=== PATIENT | female | born 1985 | race Caucasian/White ===

== ENCOUNTER → 2016-09-03 09:50 | Observation (INO) ==
[~2016-09-03 09:50] MED LIST: Mag Hydrox/Al Hydrox/Simeth 30 ML UDC PO PRN
--- NOTE | 2016-09-03 10:07 | OB/GYN Progress Note ---
Date of Encounter: 09/03/16 Time of Encounter: 10:05 - Assessment and Plan (1) LGA (large for gestational age) fetus affecting mother, antepartum Status: Acute Evaluation per Dr Bhatia Qualifiers: Fetus number: single or unspecified fetus Trimester: third trimester Qualified Code(s): O36.63X0 - Maternal care for excessive growth, third trimester, not applicable or unspecified (2) 33 weeks gestation of Status: Acute Care per Dr Bhatia (3) Antepartum non-reassuring heart rate or rhythm affecting care of mother Status: Acute Reactive NST, repeat in [address] Bhatia (4) GDM, class A2 Status: Acute BS good today, on glyburide Subjective - Subjective Principal diagnosis: 33 week LGA h/o nonreassuring monitoring Interval history: Pt of Dr Bhatia to L+D for 2 hour NST scheduled per Dr Bhatia Antepartum ROS: movement normal, no new complaints, no loss of fluid, no vaginal bleeding Objective - Exam FHR: category 1 - Labs Labs: Abnormal lab results POC Glucose 101 (58-89) H 09/03/16 08:06
== END | disposition home or self-care (01) ==
LOC: 1NENULAB
PROVIDERS: ADMIT Student in an Organized Health Care Education/Training Program; ATTEND Student in an Organized Health Care Education/Training Program

== ENCOUNTER 2016-09-04 16:35 | Inpatient (IN) ==
[2016-09-04 13:02] LABS: Basophils % 0.2 %; Hemoglobin 12.9 g/dL (11.5-15.4); Immature Granulocytes % 1.3 % (0-4); Immature Platelets 6.6 % (1.1-6.1); Lymphocytes # 1.7 K/mcL (0.6-4.6); Lymphocytes % 20.2 %; Mean Corpuscular HGB Conc 32.3 g/dL (31.6-35.5); Mean Corpuscular Hemoglobin 29.5 pg (28.0-33.3); Mean Corpuscular Volume 91.3 fL (83.0-100.0); Monocytes # 0.7 K/mcL (0.0-1.3); Monocytes % 7.8 %; Platelet Count 343 K/mcL (140-400); Red Blood Count 4.38 M/mcL (3.82-4.97); Red Cell Distribution Width 14.7 % (11.5-14.5); Segmented Neutrophils % 70.5 %
[~2016-09-04 16:35] MED LIST changes: +Betamethasone Acet/SodPhos 6 MG/ML MDV IM SCH; +Lidocaine -MPF 2% 5 ML VIAL ONE; -Mag Hydrox/Al Hydrox/Simeth 30 ML UDC PO PRN; +Ringers Solution, Lactated 500 ML IVC ONE
[2016-09-04] MEDS ORDERED: *HR* FentaNYL (PF) 100 MCG/2 ML VIAL ONE (16:47)
[2016-09-04] MEDS ORDERED: *HR* Phenylephrine 10 MG/ML VIAL ONE (16:47)
[2016-09-04] MEDS ORDERED: *HR* Morphine Sulfate/PF 5 MG/10 ML AMPUL ONE (16:47)
[2016-09-04] MEDS ORDERED: *HR* Oxytocin 10 UNIT/ML VIAL IM ONE ×2 (16:47→17:16)
[2016-09-04] MEDS ORDERED: Famotidine 20 MG/2 ML VIAL IVP PRN (16:57)
[2016-09-04] MEDS ORDERED: Naloxone 0.4 MG/ML INJ IVP PRN (16:57)
[2016-09-04 17:13] LABS: Alanine Aminotransferase 17 Units/L (0-55); Albumin 2.8 g/dL (3.5-5.0); Albumin/Globulin Ratio 0.5 (1.1-2.2); Alkaline Phosphatase 135 Units/L (38-126); Aspartate Amino Transferase 18 Units/L (5-34); BUN/Creatinine Ratio 12 (6-26); Bilirubin,Total 0.5 mg/dL (0.2-1.2); Blood Urea Nitrogen 11 mg/dL (7-20); Calcium 9.8 mg/dL (8.6-10.8); Chloride 105 mEq/L (98-109); Globulin 5.2 g/dL (2.4-3.5); Glucose 98 mg/dL (70-99); Osmolality,Calculated 271 (280-300); Sodium 131 mEq/L (136-145); eGFR For African Americans > 60 (> 60); eGFR For Non-African Americans > 60 (> 60)
[2016-09-04] MEDS ORDERED: Ringers Solution, Lactated 1,000 ML ONE (17:15)
[2016-09-04 17:16] LABS: Carbon Dioxide 8 mEq/L (19-29)
[2016-09-04] MEDS ORDERED: Ondansetron 4 MG/2 ML VIAL ONE (17:18)
[2016-09-04] MEDS ORDERED: *HR* Promethazine 25 MG/ML VIAL IVP PRN (17:45)
[2016-09-04] MEDS ORDERED: *HR* HYDROmorphone (PF) 1 MG/ML SYRINGE IVP PRN (17:45)
--- NOTE | 2016-09-04 17:49 | Anesthesia Evaluation PreOp ---
Date of Encounter: 09/04/16 Time of Encounter: 16:44 - Past History Planned Operation: , unstable FHR Cardiac History: Denies any Significant Hx, Other (tachycardia, SOB, ECHO ordered per DR. Bhatia, MET can walk slowly 1 mile with SOB) Pulmonary History: Other (very SOB,) PEANUT SHAKER History: Other (Sciatic left hip with radiculopathy occ not position dependent.) Other Medical History: Diabetes Type II, Other (RA in shoulders, hips, knee's according to patient) Anesthesia History: No Prior Anesthetic Complications, Past Anesthesia : Yes (34 wks in labor, late decerations) Alcohol Use: none Drug use: none Medications and Allergies Mag Hydrox/Al Hydrox/Simeth [Maalox] 30 ml PO BID 09/04/16 [History] Vit/Iron Fumarate/FA [ Tablet] 1 each PO DAILY 09/04/16 [ History] glyBURIDE [GlyBURIDE] 7.5 mg PO DAILY 09/04/16 [History] glyBURIDE [GlyBURIDE] 10 mg PO 0800 09/04/16 [History] Allergies latex Adverse Reaction (Verified 09/01/16 10:04) Blister Anesthesia Results - Labs 09/04/16 12:50 09/04/16 12:50 Anesthesia Exam - HEENT Pupil (Motor): Pupils equal Mallampati: III Teeth: Normal Oral Opening: Greater than 3 (good neck and jaw ROM) - PEANUT SHAKER LOC: Oriented PEANUT SHAKER Motor: Normal RUE, Normal LUE, Normal RLE, Normal LLE, Normal Face PEANUT SHAKER Sensory: Normal: RUE, LUE, RLE, LLE, Face - Cardiac Rhythm: Regular Murmur: None - Pulmonary Breath Sounds: bilateral Clear Respiratory Effort: Symmetrical Anesthesia Assess/Plan ASA Score: 2, E (unable to wait for NPO status or echo read to continue for operative del, plan for regional) Modified Ramer Scale for Level of Consciousness: Cooperative, oriented, and tranquil Anesthetic Plan: General, Regional Monitoring Plan: Standard Monitors Recovery Plan: PACU
[2016-09-04] MEDS ORDERED: Oxytocin 20 units/ LR 1000 mL 20 UNIT/1,000 ML BAG IVC ONE (18:28)
--- NOTE | 2016-09-04 18:51 | OB/GYN History & Physical ---
Date of Encounter: 09/05/16 Time of Encounter: 18:41 Assessment and Plan (1) Antepartum non-reassuring heart rate or rhythm affecting care of mother Current visit: No Status: Deleted After the patient was on prolonged monitoring, she began to have recurrent late decels so I made the decision to proceed to a primary section, she is s/p BMZ @ 1236hrs I've discussed with the patient and answered her questions, Anesthesia informed History of Present Illness HPI: Ms. Patel is a 31 year old female @ 33+1 weeks with GDMA 2 on Glyburide who presented to L and D for prolonged monitoring after a BPP of 6/8(2 for breathing). On L and D, fingersticks have been normal, no LOF, VB or ctxs. She reports some difficulty breathing when she lays down. She reports that she has been watching what she eats because she was afraid of her sugars and reports only eating a hard boiled egg for breakfast. On L and D, tracing was noted to be tachycardic with mod chase, occasional variable and occ late decels. She was given steroids for lung maturation. She was kept longer on the monitor and continued to complain of shortness of breath. She became tachycardic and tachypnic, BP normal, O2 sats 100%. She was sent for an ECHO which returned normal. Shortly after she returned, the tracing was found to have recurrent late decels. Labs were drawn before proceeding to C/Section. Past Med Surg Social Fam HX - Past Medical History Medical history: non-contributory, migraine Psychiatric history: depression - Past Surgical History Surgical History: cholecystectomy - Social History Smoking Status: Never smoker Smokeless Tobacco Status: No Alcohol use: none Drug use: none - Family History Mother Living Status: Still Living Hx Family Cardiac Disorders: No Hx Family Respiratory Disorders: No Hx Family Cancer: No Hx Family GI Disorders: No Hx Family Endocrine Disorder: No Hx Family Neuromuscular Disorders: No Hx Family Neurologic Disorders: No Hx Family HEENT Disorders: No Hx Family Autoimmune Disorders: No Obstetrical History - Pregnancies : 5 Medications and Allergies Mag Hydrox/Al Hydrox/Simeth [Maalox] 30 ml PO BID 09/04/16 [History] Vit/Iron Fumarate/FA [ Tablet] 1 each PO DAILY 09/04/16 [ History] glyBURIDE [GlyBURIDE] 7.5 mg PO DAILY 09/04/16 [History] glyBURIDE [GlyBURIDE] 10 mg PO 0800 09/04/16 [History] Allergies latex Adverse Reaction (Verified 09/01/16 10:04) Blister Review of System OB All systems PM: reviewed and no additional remarkable complaints except as stated Exam - Constitutional Constitutional: well nourished - HEENT HEENT: PERRL - Neck Neck exam: full ROM - Lungs Respiratory exam: CTAB - Cardiovascular Cardiovascular exam: RRR, tachycardia - Abdomen Abdomen: Present: gravid Results Result Diagrams: 09/05/16 01:11 09/05/16 06:00 Abnormal lab results RDW 14.7 % (11.5-14.5) H 09/04/16 12:50 Immature Plt Fraction 6.6 % (1.1-6.1) H 09/04/16 12:50 Sodium 131 mEq/L (136-145) L 09/04/16 12:50 Potassium 5.0 mEq/L (3.5-4.5) H 09/04/16 12:50 Carbon Dioxide 8 mEq/L (19-29) L* 09/04/16 12:50 POC Glucose 120 (58-89) H 09/04/16 14:48 Calculated Osmolality 271 (280-300) L 09/04/16 12:50 Alkaline Phosphatase 135 Units/L (38-126) H 09/04/16 12:50 Albumin 2.8 g/dL (3.5-5.0) L 09/04/16 12:50 Globulin 5.2 g/dL (2.4-3.5) H 09/04/16 12:50 Albumin/Globulin Ratio 0.5 (1.1-2.2) L 09/04/16 12:50 All other labs normal. - VTE Reasons for not Prescribing Prophylaxis: Treatment not Indicated - Low risk for VTE
[2016-09-04] MEDS ORDERED: 0.9 % Sodium Chloride 1,000 ML IVC ONE (19:13)
[2016-09-04 19:37] LABS: ABG Base Excess -19.7 mEq/L (-2.0 to 3.0); ABG HCO3 5.7 mEQ/L (21-27); ABG Oxygen Saturation 98 % (95-98); ABG PH 7.22 pH Units (7.32-7.45); ABG PO2 121 mmHg (85-104); ABG TCO2 6.1 mEq/L (20-26); Blood Gas FiO2 21 %
[2016-09-04 19:38] LABS: ABG PCO2 14 mmHg (35-45)
--- NOTE | 2016-09-04 20:22 | OB/GYN Procedure Note ---
Section - Date of procedure: 09/04/16 Preop diagnosis: category 2 FHT tracing Post-op diagnosis: same Procedure: section, primary low transverse Surgeon: Nixon Bhatia Estimated blood loss (cc): 200 Anesthesia Type: Spinal section complications: none Disposition: L&D Recovery Room Specimens: Placenta, Cord gasses - (s) A Delivery Date: 09/04/16 Infant Delivery Time: 17:57 Presentation: vertex Gender: Male Viability: Viable Gram Weight: 2.27 kg at 1 minute: 1 at 5 minutes: 3 at 10 minutes: 5 Shoulder Dystocia: not encountered Placenta: complete extraction Cord: 3 umbilical vessels - Narrative Narrative: Patient was brought to the operating room and was given satisfactory spinal anesthesia. The abdomen was prepped and draped in a sterile fashion. A Pfannenstiel incision was made and carried sharply down to the level of fascia. The fascia was incised transversely. The fascia was dissected away from the underlying rectus muscles. With sharp and blunt dissection, rectus muscles were divided in midline. The perineum was entered bluntly. The incision was carried vertically with scissors. Transverse incision was made across the bladder peritoneum. The bladder was dissected away from the underlying lower uterine segment. Bladder retractor was placed to protect the bladder. The lower uterine segment was entered sharply with a scalpel. Incision was manually extended. The 's head was pulled up and delivered easily as were the shoulders and body. The mouth and oropharynx were suctioned. The cord was clamped and cut. The infant was passed off to the waiting case operator. Placenta was extracted completely and found to be intact. Uterus was explored and found to be empty. Uterus was delivered through the abdominal incision and massaged vigorously. Intravenous Pitocin was administered. The margins of the uterine incision, which was closed primarily with a running locking stitch of 0 Vicryl with adequate hemostasis. Secondary running locking stitch was placed for extra strength to the wound. The uterus was returned to its proper anatomic position in the abdomen. The fascia was closed with a simple running stitch of 0 vicryl. The skin was closed with running subcuticular of 4-0 vicryl. Uterus was expressed of its contents. Patient was brought to the recovery room in satisfactory condition. There were no complications. All sponge, needle, and instrument counts were reported to be correct.
--- NOTE | 2016-09-04 20:27 | OB/GYN Progress Note ---
Date of Encounter: 09/04/16 Time of Encounter: 20:22 - Assessment and Plan (1) Status post section Current Visit: Yes Status: Acute After review of the patient's labs, I've ordered a repeat every 2 hrs for now, 0.9% saline 1L over 1 hr given, HCO3 given, will keep here on L and D until stable ABG values reviewed- patient has compensated metabolic acidosis, Subjective - Subjective Interval history: patient doing much better, reports improved breathing, HR now normal Objective - Vital Signs Latest vital signs: Intake and Output 09/04/16 09/04/16 09/04/16 07:59 15:59 23:59 Other: Weight 76.3 kg Patient Weight 09/04/16 23:59 Weight 76.3 kg - Labs Labs: Laboratory Results - last 24 hr 09/04/16 09/04/16 09/04/16 10:21 12:50 12:50 WBC 8.5 RBC 4.38 Hgb 12.9 Hct 40.0 MCV 91.3 MCH 29.5 MCHC 32.3 RDW 14.7 H Plt Count 343 MPV 11.0 Immature Gran % 1.3 Seg Neutrophils % 70.5 Lymphocytes % 20.2 Monocytes % 7.8 Eosinophils % 0.0 Basophils % 0.2 Neutrophils # 6.0 Lymphocytes # 1.7 Monocytes # 0.7 Eosinophils # 0.0 Basophils # 0.0 Immature Plt Fraction 6.6 H ABG pH ABG pCO2 ABG pO2 ABG HCO3 ABG Total CO2 ABG O2 Saturation ABG Base Excess Blood Gas Modality Inspired O2 Sodium 131 L Potassium 5.0 H Chloride 105 Carbon Dioxide 8 L* BUN 11 Creatinine 0.92 Est GFR ( Amer) > 60 Est GFR (Non-Af Amer) > 60 BUN/Creatinine Ratio 12 Glucose 98 POC Glucose 115 H Calculated Osmolality 271 L Calcium 9.8 Total Bilirubin 0.5 AST 18 ALT 17 Alkaline Phosphatase 135 H Serum Total Protein 8.0 Albumin 2.8 L Globulin 5.2 H Albumin/Globulin Ratio 0.5 L 09/04/16 09/04/16 14:48 19:25 WBC RBC Hgb Hct MCV MCH MCHC RDW Plt Count MPV Immature Gran % Seg Neutrophils % Lymphocytes % Monocytes % Eosinophils % Basophils % Neutrophils # Lymphocytes # Monocytes # Eosinophils # Basophils # Immature Plt Fraction ABG pH 7.22 L ABG pCO2 14 L* ABG pO2 121 H ABG HCO3 5.7 L ABG Total CO2 6.1 L ABG O2 Saturation 98 ABG Base Excess -19.7 L Blood Gas Modality RA Inspired O2 21 Sodium Potassium Chloride Carbon Dioxide BUN Creatinine Est GFR ( Amer) Est GFR (Non-Af Amer) BUN/Creatinine Ratio Glucose POC Glucose 120 H Calculated Osmolality Calcium Total Bilirubin AST ALT Alkaline Phosphatase Serum Total Protein Albumin Globulin Albumin/Globulin Ratio
[2016-09-04 20:56] LABS: Bilirubin,Urine Negative (Negative); Blood,Urine Small (Negative); Clarity,Urine Clear (Clear); Color,Urine Yellow (Yellow); Glucose,Urine (UA) Normal (Normal); Ketones,Urine >=160 mg/dL (Negative); Leukocyte Esterase,Urine Negative (Negative); Nitrite,Urine Negative (Negative); PH,Urine 5.5 pH Units (5.0-8.0); Protein,Urine 30 mg/dL (Neg-Trace); Specific Gravity,Urine 1.015 (1.010-1.025); Urobilinogen,Urine Normal (Normal)
[2016-09-04 20:58] LABS: Bacteria,Urine None Seen per hpf (None-Few); Hyaline Casts,Urine None Seen per lpf (None-Few); RBC,Urine 0-3 per hpf (0-3); Squamous Epithelial Cell,Urine Moderate per lpf (None-Few); WBC,Urine 0-3 per hpf (0-3)
[2016-09-04 22:01] LABS: Alanine Aminotransferase 14 Units/L (0-55); Albumin/Globulin Ratio 0.5 (1.1-2.2); Alkaline Phosphatase 111 Units/L (38-126); Aspartate Amino Transferase 17 Units/L (5-34); BUN/Creatinine Ratio 11 (6-26); Bilirubin,Total 0.3 mg/dL (0.2-1.2); Blood Urea Nitrogen 9 mg/dL (7-20); Calcium 8.9 mg/dL (8.6-10.8); Chloride 111 mEq/L (98-109); Globulin 4.2 g/dL (2.4-3.5); Glucose 160 mg/dL (70-99); Osmolality,Calculated 282 (280-300); Sodium 135 mEq/L (136-145); Total Protein 6.4 g/dL (6.0-8.3); eGFR For African Americans > 60 (> 60); eGFR For Non-African Americans > 60 (> 60)
[2016-09-04 22:03] LABS: Albumin 2.2 g/dL (3.5-5.0)
[2016-09-04 22:05] LABS: Carbon Dioxide 5 mEq/L (19-29)
[2016-09-04] MEDS ORDERED: Ondansetron 4 MG/2 ML VIAL IVP PRN (22:33)
[2016-09-04] MEDS ORDERED: Metoclopramide 10 MG/2 ML VIAL IVP PRN (22:33)
[2016-09-04] MEDS ORDERED: Ibuprofen 600 MG TABLET PO PRN (22:33)
[2016-09-04] MEDS ORDERED: Sennosides 8.6 MG TABLET PO PRN (22:33)
[2016-09-04] MEDS ORDERED: Simethicone 80 MG TAB.CHEW PO PRN (22:33)
[2016-09-04] MEDS ORDERED: *HR* OxyCODONE/APAP 5/325 TABLET PO PRN (22:33)
[2016-09-04] MEDS ORDERED: Oxytocin 20 units/ LR 1000 mL 20 UNIT/1,000 ML BAG IVC SCH (22:45)
--- NOTE | 2016-09-04 23:23 | Anesthesia Evaluation Post Op ---
Date of Encounter: 09/04/16 Time of Encounter: 23:19 - Vital Signs Vital Signs: vss, continue to follow hospitalist consulted for uncomp metabolic acidosis (neg ) lactic acidosis. spilling ketones in urine. - Lungs Lungs: Clear Ascult./Percussion - Airway Airway: Non-obstructed - Cardiovascular Regular Rate - Mental Status Mental Status: Alert & Oriented, Answers Appropriately - Pain Pain Scale used: Flowers-Nugent (Faces) (tolerable) - Nausea Vomiting Nausea Vomiting: Not Present - Hydration Hydration: Ice chips - Discharge PostOp Status: Transfer Patient to floor
[2016-09-04] MEDS ORDERED: BREAST MILK 1 BOTTLE PO PRN (23:49)
[2016-09-05] MEDS ORDERED: *HR* HYDROmorphone (PF) 1 MG/ML SYRINGE IVP PRN ×2 (00:08→01:06)
[2016-09-05] MEDS ORDERED: *HR* Morphine 2 MG/ML SYRINGE IVP PRN ×2 (00:08→01:06)
--- NOTE | 2016-09-05 00:27 | OB/GYN Progress Note ---
Date of Encounter: 09/05/16 Time of Encounter: 00:25 - Assessment and Plan (1) Status post section Current Visit: Yes Status: Acute After reviewing the repeat labs, I feel it is best to have this patient transferred to a higher level of care to manage her electrolyte abnormalities, I have spoken t the Hospitalist who agrees with the transfer, OB will keep rounding, Subjective - Subjective Interval history: Patient ontinues to report improvement in her symptoms Objective - Vital Signs Latest vital signs: Intake and Output 09/04/16 09/04/16 09/05/16 15:59 23:59 07:59 Intake Total 1000 / 1000 Balance 1000 / 1000 Intake: IV Fluids 1000 / 1000 0.9 % Sodium Chloride 1, 1000 / 1000 000 ML @ 3750 mls/hr IVC .Q16M ONE Rx#:[id number] Other: Weight 76.3 kg - Labs Labs: Laboratory Results - last 24 hr 09/04/16 09/04/16 09/04/16 10:21 12:50 12:50 WBC 8.5 RBC 4.38 Hgb 12.9 Hct 40.0 MCV 91.3 MCH 29.5 MCHC 32.3 RDW 14.7 H Plt Count 343 MPV 11.0 Immature Gran % 1.3 Seg Neutrophils % 70.5 Lymphocytes % 20.2 Monocytes % 7.8 Eosinophils % 0.0 Basophils % 0.2 Neutrophils # 6.0 Lymphocytes # 1.7 Monocytes # 0.7 Eosinophils # 0.0 Basophils # 0.0 Immature Plt Fraction 6.6 H ABG pH ABG pCO2 ABG pO2 ABG HCO3 ABG Total CO2 ABG O2 Saturation ABG Base Excess Blood Gas Modality Inspired O2 Sodium 131 L Potassium 5.0 H Chloride 105 Carbon Dioxide 8 L* BUN 11 Creatinine 0.92 Est GFR ( Amer) > 60 Est GFR (Non-Af Amer) > 60 BUN/Creatinine Ratio 12 Glucose 98 POC Glucose 115 H Calculated Osmolality 271 L Lactic Acid Calcium 9.8 Total Bilirubin 0.5 AST 18 ALT 17 Alkaline Phosphatase 135 H Serum Total Protein 8.0 Albumin 2.8 L Globulin 5.2 H Albumin/Globulin Ratio 0.5 L Beta-Hydroxybutyric Acd Urine Color Urine Clarity Urine pH Ur Specific [place] Urine Protein Urine Glucose (UA) Urine Ketones Urine Blood Urine Nitrite Urine Bilirubin Urine Urobilinogen Ur Leukocyte Esterase Urine Microscopic RBC Urine Microscopic WBC Ur Squamous Epith Cells Urine Bacteria Hyaline Casts 09/04/16 09/04/16 09/04/16 14:48 19:25 20:42 WBC RBC Hgb Hct MCV MCH MCHC RDW Plt Count MPV Immature Gran % Seg Neutrophils % Lymphocytes % Monocytes % Eosinophils % Basophils % Neutrophils # Lymphocytes # Monocytes # Eosinophils # Basophils # Immature Plt Fraction ABG pH 7.22 L ABG pCO2 14 L* ABG pO2 121 H ABG HCO3 5.7 L ABG Total CO2 6.1 L ABG O2 Saturation 98 ABG Base Excess -19.7 L Blood Gas Modality RA Inspired O2 21 Sodium Potassium Chloride Carbon Dioxide BUN Creatinine Est GFR ( Amer) Est GFR (Non-Af Amer) BUN/Creatinine Ratio Glucose POC Glucose 120 H Calculated Osmolality Lactic Acid Calcium Total Bilirubin AST ALT Alkaline Phosphatase Serum Total Protein Albumin Globulin Albumin/Globulin Ratio Beta-Hydroxybutyric Acd Urine Color Yellow Urine Clarity Clear Urine pH 5.5 Ur Specific [place] 1.015 Urine Protein 30 H Urine Glucose (UA) Normal Urine Ketones >=160 H Urine Blood Small H Urine Nitrite Negative Urine Bilirubin Negative Urine Urobilinogen Normal Ur Leukocyte Esterase Negative Urine Microscopic RBC 0-3 Urine Microscopic WBC 0-3 Ur Squamous Epith Cells Moderate H Urine Bacteria None Seen Hyaline Casts None Seen 09/04/16 09/04/16 09/04/16 21:40 21:40 21:40 WBC RBC Hgb Hct MCV MCH MCHC RDW Plt Count MPV Immature Gran % Seg Neutrophils % Lymphocytes % Monocytes % Eosinophils % Basophils % Neutrophils # Lymphocytes # Monocytes # Eosinophils # Basophils # Immature Plt Fraction ABG pH ABG pCO2 ABG pO2 ABG HCO3 ABG Total CO2 ABG O2 Saturation ABG Base Excess Blood Gas Modality Inspired O2 Sodium 135 L Potassium 4.0 D Chloride 111 H Carbon Dioxide 5 L* BUN 9 Creatinine 0.82 Est GFR ( Amer) > 60 Est GFR (Non-Af Amer) > 60 BUN/Creatinine Ratio 11 Glucose 160 H POC Glucose Calculated Osmolality 282 Lactic Acid 0.6 Calcium 8.9 Total Bilirubin 0.3 AST 17 ALT 14 Alkaline Phosphatase 111 Serum Total Protein 6.4 Albumin 2.2 L D Globulin 4.2 H Albumin/Globulin Ratio 0.5 L Beta-Hydroxybutyric Acd > 2.00 H Urine Color Urine Clarity Urine pH Ur Specific [place] Urine Protein Urine Glucose (UA) Urine Ketones Urine Blood Urine Nitrite Urine Bilirubin Urine Urobilinogen Ur Leukocyte Esterase Urine Microscopic RBC Urine Microscopic WBC Ur Squamous Epith Cells Urine Bacteria Hyaline Casts
[2016-09-05] MEDS ORDERED: Sennosides 8.6 MG TABLET PO PRN (01:06)
[2016-09-05] MEDS ORDERED: Simethicone 80 MG TAB.CHEW PO PRN (01:06)
[2016-09-05] MEDS ORDERED: Naloxone 0.4 MG/ML INJ IVP PRN (01:06)
[2016-09-05] MEDS ORDERED: Ibuprofen 600 MG TABLET PO PRN (01:06)
[2016-09-05] MEDS ORDERED: *HR* Dextrose 50 % in Water (Syg) 50 ML SYRINGE IVP PRN ×2 (01:20→15:34)
[2016-09-05] MEDS ORDERED: D5% in 0.45% NACL 1,000 ML IVC PRN (01:20)
[2016-09-05] MEDS ORDERED: Insulin Human Regular 100 UNIT in 0.9 % Sodium Chloride 100 ML IVC SCH (01:30)
[2016-09-05 02:04] LABS: Basophils % 0.2 %; Hemoglobin 10.8 g/dL (11.5-15.4); Immature Granulocytes % 1.3 % (0-4); Lymphocytes # 0.9 K/mcL (0.6-4.6); Lymphocytes % 7.9 %; Mean Corpuscular HGB Conc 32.7 g/dL (31.6-35.5); Mean Corpuscular Hemoglobin 29.3 pg (28.0-33.3); Mean Corpuscular Volume 89.7 fL (83.0-100.0); Mean Platelet Volume 11.1 fL (9.4-12.4); Monocytes % 8.5 %; Neutrophils # 9.3 K/mcL (1.6-8.9); Platelet Count 266 K/mcL (140-400); Red Blood Count 3.68 M/mcL (3.82-4.97); Red Cell Distribution Width 14.6 % (11.5-14.5); Segmented Neutrophils % 82.1 %
[2016-09-05 02:07] LABS: VBG HCO3 10.3 mEq/L (21-27); VBG PH 7.26 pH Units (7.32-7.42)
[2016-09-05 02:18] LABS: BUN/Creatinine Ratio 11 (6-26); Blood Urea Nitrogen 9 mg/dL (7-20); Calcium 8.9 mg/dL (8.6-10.8); Chloride 111 mEq/L (98-109); Glucose 195 mg/dL (70-99); Osmolality,Calculated 280 (280-300); Sodium 133 mEq/L (136-145); eGFR For African Americans > 60 (> 60); eGFR For Non-African Americans > 60 (> 60)
[2016-09-05 02:22] LABS: Carbon Dioxide 9 mEq/L (19-29)
--- NOTE | 2016-09-05 02:56 | Internal Medicine Consult Note ---
<Avtar Mcmanus - Last Filed: 09/05/16 02:53> Date of Encounter: 09/05/16 Time of Encounter: 01:50 - Assessment and Plan (1) Diabetic ketoacidosis Current Visit: Yes Status: Acute Assessment and plan: The patient transferred from labor and delivery for diabetic ketoacidosis. Patient was diagnosed with gestational diabetes on glipizide at home. Poor oral intake over the last couple days. - Sodium 135, chloride 111, carbon dioxide 5, anion gap of 19, beta hydroxybutyric acid greater than 2, glucose 160. She received 1 L bolus normal saline in labor and delivery. Goal: close anion gap Plan: - D5 in 0.45 saline + potassium @200ml/hr - 0.1 units/kg/hr insulin - Q1hr glucose checks - VBG once - BMP Q4hrs - DKA protocol - continuous cardiac monitoring Qualifiers: Diabetes mellitus type: type 2 Qualified Code(s): E13.10 - Other specified diabetes mellitus with ketoacidosis without coma (2) Status post section Current Visit: Yes Status: Acute Assessment and plan: Patient is status post section this evening. - Obstetrics to continue postdelivery care. (3) GDM, class A2 Current Visit: Yes Status: Acute Assessment and plan: Patient diagnosed with gestational diabetes. Home medications include glyburide daily. Plan: - Post DKA correction patient will require before meals at bedtime glucose checks - low dose inpatient sliding scale. (4) DVT prophylaxis Current Visit: Yes Status: Acute Assessment and plan: SCDs Internal Medicine - CN: HPI - Data of Consult Patient: new to practice Consult date: 09/05/16 Requesting Physician: Nixon Bhatia MD - Consult Narrative Reason for consult: DKA History of present illness: Ms. Patel is a 31 year old female who is transferred from labor and delivery this state of diabetic ketoacidosis. Patient states that she was prediabetic first told in 2016 but was not on any medications at home. She has never taken insulin and was given glipizide after she was diagnosed with gestational diabetes around 28 weeks of . She says that everything had been going well until recently when she went and was found to have a fast heart rate and so the baby's heart rate was low and she required a this evening. She has a 2-year-old child at home and has a history of 3 miscarriages. She states that she was told that she had a bleeding disorder when she was a child but was never given a formal diagnosis. Her biggest complaint currently is dry mouth and she is thirsty. She has any headaches, blurry vision, chest pain, palpitations shortness of breath, current episodes of nausea vomiting or diarrhea. She had a block and continues to be numb from the waist down. She did not feel light palpation to the abdomen. Over the past few days she has had poor oral intake she said she has been nauseous and tried to eat some food yesterday and wanted vomiting it back up. She said her last food intake was on . She has been tolerating liquids over the past several days and today. She said prior to transfer she drank some sugar-free tea before coming down and tolerated that well. She has no other significant complaints. Past Med Surg Social Fam HX - Past Medical History Medical history: non-contributory, migraine Psychiatric history: depression - Past Surgical History Surgical History: cholecystectomy - Social History Smoking Status: Never smoker Smokeless Tobacco Status: No Alcohol use: none Drug use: none - Family History Mother Living Status: Still Living Hx Family Cardiac Disorders: No Hx Family Respiratory Disorders: No Hx Family Cancer: No Hx Family GI Disorders: No Hx Family Endocrine Disorder: No Hx Family Neuromuscular Disorders: No Hx Family Neurologic Disorders: No Hx Family HEENT Disorders: No Hx Family Autoimmune Disorders: No - Constitutional Constitutional: no chills, no fatigue, no fever(s), no lethargy, no night sweats - EENT Eyes: no blurry vision, no change in vision Nose, mouth and throat: dry mouth, no hoarseness, no mouth lesions, no neck pain - Breasts Breasts: nipple discharge (Lactating) - Cardiovascular Cardiovascular ROS IM: no chest pain, no dyspnea, no irregular heart rhythm, no lightheadedness, no palpitations - Respiratory Respiratory: no cough, no hemoptysis, no wheezing - Gastrointestinal Gastrointestinal: no constipation, no loose stools, no nausea, no vomiting - Genitourinary Genitourinary: no difficulty urinating, no dysuria, no flank pain - Musculoskeletal Musculoskeletal ROS IM: no back pain, no deformity - Integumentary Integumentary IM: no new lesions, no rash - Neurological Neurological ROS: numbness (Postanesthesia), no confusion, no loss of vision - Psychiatric Psychiatric: depression Internal Medicine - CN: Meds Mag Hydrox/Al Hydrox/Simeth [Maalox] 30 ml PO BID 09/04/16 [History] Vit/Iron Fumarate/FA [ Tablet] 1 each PO DAILY 09/04/16 [ History] glyBURIDE [GlyBURIDE] 7.5 mg PO DAILY 09/04/16 [History] glyBURIDE [GlyBURIDE] 10 mg PO 0800 09/04/16 [History] Allergies latex Adverse Reaction (Verified 09/01/16 10:04) Blister Internal Medicine - CN: Exam - Constitutional Vitals: Temp Pulse Resp BP Pulse Ox 98.5 F 94 20 116/74 95 09/05/16 01:01 09/05/16 01:01 09/05/16 01:01 09/05/16 01:01 09/05/16 01:01 Exam: General: Patient alert, awake, oriented 3, interactive, in no acute distress HEENT: Normocephalic, atraumatic, pupils equal reactive to light, nasal cavity patent and open septum median position, dry mucous membranes, poor dentition. neck supple trachea midline no palpable lymphadenopathy, no thyromegaly. Chest: Symmetric bilateral correlating with respiratory effort, effort nonlabored. Cardiac: Regular rate and rhythm, positive S1 and S2. no bruits appreciated bilateral carotids, Radial pulses 2+ bilateral, posterior tibial and dorsal pedal pulses 2+ bilateral. Respiratory: Clear to auscultation all lung jones Abdomen: Soft, distended post-, positive bowel sounds, no palpable masses appreciated on examination Extremities: Symmetric bilateral, bilateral lower extremities without erythema or edema Neurologic: No focal deficits appreciated on examination. Face symmetric Internal Medicine - CN: Reslt - Labs CBC & Chem 7: 09/05/16 01:11 09/05/16 01:11 Labs: Short CBC 09/04/16 09/05/16 Range/Units 12:50 01:11 WBC 8.5 11.4 H (4.3-11.1) K/mcL Hgb 12.9 10.8 L D (11.5-15.4) g/dL Hct 40.0 33.0 L (35.3-44.9) % Plt Count 343 266 (140-400) K/mcL Neutrophils # 6.0 9.3 H (1.6-8.9) K/mcL BMP 09/04/16 09/04/16 09/05/16 12:50 21:40 01:11 Sodium 131 L 135 L 133 L Potassium 5.0 H 4.0 D 4.0 Chloride 105 111 H 111 H Carbon Dioxide 8 L* 5 L* 9 L* BUN 11 9 9 Creatinine 0.92 0.82 0.84 Glucose 98 160 H 195 H Calcium 9.8 8.9 8.9 Liver Function 09/04/16 09/04/16 Range/Units 12:50 21:40 Total Bilirubin 0.5 0.3 (0.2-1.2) mg/dL AST 18 17 (5-34) Units/L ALT 17 14 (0-55) Units/L Alkaline Phosphatase 135 H 111 (38-126) Units/L Albumin 2.8 L 2.2 L D (3.5-5.0) g/dL Urine 09/04/16 Range/Units 20:42 Urine Color Yellow (Yellow) Urine Clarity Clear (Clear) Urine pH 5.5 (5.0-8.0) pH Units Ur Specific [place] 1.015 (1.010-1.025) Urine Protein 30 H (Neg-Trace) mg/dL Urine Glucose (UA) Normal (Normal) mg/dL - ABG Interpretation ABG results: ABG ABG pH 7.22 pH Units (7.32-7.45) L 09/04/16 19:25 ABG pCO2 14 mmHg (35-45) L* 09/04/16 19:25 ABG pO2 121 mmHg (85-104) H 09/04/16 19:25 ABG O2 Saturation 98 % (95-98) 09/04/16 19:25 <Thomas Jackson - Last Filed: 09/05/16 03:59> Date of Encounter: 09/05/16 Time of Encounter: 02:00 Internal Medicine - CN: HPI - Data of Consult Requesting Physician: Nixon Bhatia MD - Consult Narrative History of present illness: Ms. Patel is a 31 year old female Internal Medicine - CN: Exam - Constitutional Vitals: Temp Pulse Resp BP Pulse Ox 98.5 F 94 20 116/74 95 09/05/16 01:01 09/05/16 01:01 09/05/16 01:01 09/05/16 01:01 09/05/16 01:01 Internal Medicine - CN: Reslt - Labs CBC & Chem 7: 09/05/16 01:11 09/05/16 01:11 Labs: Short CBC 09/04/16 09/05/16 Range/Units 12:50 01:11 WBC 8.5 11.4 H (4.3-11.1) K/mcL Hgb 12.9 10.8 L D (11.5-15.4) g/dL Hct 40.0 33.0 L (35.3-44.9) % Plt Count 343 266 (140-400) K/mcL Neutrophils # 6.0 9.3 H (1.6-8.9) K/mcL BMP 09/04/16 09/04/16 09/05/16 12:50 21:40 01:11 Sodium 131 L 135 L 133 L Potassium 5.0 H 4.0 D 4.0 Chloride 105 111 H 111 H Carbon Dioxide 8 L* 5 L* 9 L* BUN 11 9 9 Creatinine 0.92 0.82 0.84 Glucose 98 160 H 195 H Calcium 9.8 8.9 8.9 Liver Function 09/04/16 09/04/16 Range/Units 12:50 21:40 Total Bilirubin 0.5 0.3 (0.2-1.2) mg/dL AST 18 17 (5-34) Units/L ALT 17 14 (0-55) Units/L Alkaline Phosphatase 135 H 111 (38-126) Units/L Albumin 2.8 L 2.2 L D (3.5-5.0) g/dL Urine 09/04/16 Range/Units 20:42 Urine Color Yellow (Yellow) Urine Clarity Clear (Clear) Urine pH 5.5 (5.0-8.0) pH Units Ur Specific [place] 1.015 (1.010-1.025) Urine Protein 30 H (Neg-Trace) mg/dL Urine Glucose (UA) Normal (Normal) mg/dL - ABG Interpretation ABG results: ABG ABG pH 7.22 pH Units (7.32-7.45) L 09/04/16 19:25 ABG pCO2 14 mmHg (35-45) L* 07/23/17 19:25 ABG pO2 121 mmHg (85-104) H 09/04/16 19:25 ABG O2 Saturation 98 % (95-98) 09/04/16 19:25 - Attending Attestation I examined this patient and my medical decision-making was reviewed with the resident physician, Dr. Mcmanus. I agree with the documented history of present illness, review of systems, past medical, surgical social and family histories and examination findings, disposition and treatment plan as described above except to any changes set forth below. 31-year-old female patient with gestational diabetes status post section delivery last evening with severe ketoacidosis possibly diabetic. Patient is awake and alert. Takes glyburide at home. No prior episodes of ketoacidosis. Had been having nausea and vomiting for the past couple of days and was not able to eat any food. On examination patient appears very dry. Heart sounds are normal. Breath sounds are normal. Abdomen soft nontender. Diabetic ketoacidosis: Although blood sugars were not elevated, most likely ketoacidosis is diabetic in origin with the worsened due to nausea and vomiting prior to hospitalization. We will treat with IV fluids. Once blood sugars greater than 250, we will start on IV insulin to correct blood sugars. Monitor input and output. Monitor basic panel.
[2016-09-05] MEDS ORDERED: 0.9 % Sodium Chloride w KCl 20 MEQ/1,000 ML MLS IVC ONE (03:14)
[2016-09-05] MEDS: 0.9 % Sodium Chloride w KCl 20 MEQ/1,000 ML MLS IVC SCH ×3 (03:24→19:18)
[2016-09-05] MEDS: *HR* OxyCODONE/APAP 5/325 TABLET PO PRN (06:21)
[2016-09-05 06:22] LABS: VBG HCO3 14.4 mEq/L (21-27); VBG PH 7.29 pH Units (7.32-7.42)
[2016-09-05 06:30] LABS: BUN/Creatinine Ratio 9 (6-26); Blood Urea Nitrogen 7 mg/dL (7-20); Calcium 8.5 mg/dL (8.6-10.8); Carbon Dioxide 15 mEq/L (19-29); Chloride 110 mEq/L (98-109); Glucose 200 mg/dL (70-99); Osmolality,Calculated 276 (280-300); Potassium 3.6 mEq/L (3.5-4.5); Sodium 131 mEq/L (136-145); eGFR For African Americans > 60 (> 60); eGFR For Non-African Americans > 60 (> 60)
[2016-09-05] MEDS: D5% in 0.45% NACL w KCl 20 MEQ/1,000 ML MLS IVC PRN ×2 (06:49→15:26)
--- NOTE | 2016-09-05 08:16 | OB/GYN Progress Note ---
Date of Encounter: 09/05/16 Time of Encounter: 08:25 - Assessment and Plan (1) Diabetic ketoacidosis Current Visit: Yes Status: Acute Qualifiers: Diabetes mellitus type: type 2 Diabetes mellitus complication detail: without coma Qualified Code(s): E13.10 - Other specified diabetes mellitus with ketoacidosis without coma (2) Status post section Current Visit: Yes Status: Acute Subjective - Subjective Interval history: Patient is doing well this morning sleepy from the Percocet. She is still on DKA protocol so has not started anything yet. Patient that she is passing flatus no bowel movement yet. We will discuss with nursing staff about possibly getting patient up moving her little bit today. Patient reports: pain well controlled : transported Objective - Vital Signs Latest vital signs: Vital Signs Temp Pulse Resp BP Pulse Ox 09/05/16 07:13 97.9 F 71 17 96/63 97 09/05/16 04:23 82 09/05/16 04:01 97.6 F 81 16 114/65 94 09/05/16 01:01 98.5 F 94 20 116/74 95 09/05/16 00:30 94 Intake and Output 09/04/16 09/05/16 09/05/16 23:59 07:59 15:59 Intake Total 1000 / 1000 1396.0 / 1396.0 Output Total 1900 / 1900 Balance 1000 / 1000 -504.0 / -504.0 Intake: IV Fluids 1000 / 1000 1396.0 / 1396.0 0.9 % Sodium Chloride 1, 1000 / 1000 000 ML @ 3750 mls/hr IVC .Q16M ONE Rx#:[id number] KCl 20 mEq in 0.9% Sodium 375 / 375 Chloride 20 meq In 1,000 ml @ 125 mls/hr IVC .Q8H MONIKA Rx#:[id number] D5% And 0.45% Nacl 1000 1000 / 1000 Ml Bag 1,000 ML @ 250 mls /hr IVC .Q4H PRN Rx#: [id number] HumuLIN R 100 UNIT In 0. 21.0 / 21.0 9 % Sodium Chloride 100 ML @ 0.1 UNIT/KG/HR 7.8 mls/hr IVC CONT MONIKA Rx#: [id number] Output: Catheter 1900 / 1900 Other: Weight 77.5 kg Blood Glucose* 128 135 Patient Weight 09/05/16 23:59 Weight 77.5 kg - Exam Lungs: bilateral: normal Chest: Normal S1, Normal S2 Extremities: Present: normal Abdomen: Present: normal appearance Incision: Present: normal, dressed Uterus: Present: firm - Labs Labs: Laboratory Results - last 24 hr 09/04/16 09/04/16 09/04/16 10:21 12:50 12:50 WBC 8.5 RBC 4.38 Hgb 12.9 Hct 40.0 MCV 91.3 MCH 29.5 MCHC 32.3 RDW 14.7 H Plt Count 343 MPV 11.0 Immature Gran % 1.3 Seg Neutrophils % 70.5 Lymphocytes % 20.2 Monocytes % 7.8 Eosinophils % 0.0 Basophils % 0.2 Neutrophils # 6.0 Lymphocytes # 1.7 Monocytes # 0.7 Eosinophils # 0.0 Basophils # 0.0 Immature Plt Fraction 6.6 H ABG pH ABG pCO2 ABG pO2 ABG HCO3 ABG Total CO2 ABG O2 Saturation ABG Base Excess VBG pH VBG pCO2 VBG pO2 VBG HCO3 Blood Gas Modality Inspired O2 Sodium 131 L Potassium 5.0 H Chloride 105 Carbon Dioxide 8 L* BUN 11 Creatinine 0.92 Est GFR ( Amer) > 60 Est GFR (Non-Af Amer) > 60 BUN/Creatinine Ratio 12 Glucose 98 POC Glucose 115 H Calculated Osmolality 271 L Lactic Acid Calcium 9.8 Total Bilirubin 0.5 AST 18 ALT 17 Alkaline Phosphatase 135 H Serum Total Protein 8.0 Albumin 2.8 L Globulin 5.2 H Albumin/Globulin Ratio 0.5 L Beta-Hydroxybutyric Acd Urine Color Urine Clarity Urine pH Ur Specific [place] Urine Protein Urine Glucose (UA) Urine Ketones Urine Blood Urine Nitrite Urine Bilirubin Urine Urobilinogen Ur Leukocyte Esterase Urine Microscopic RBC Urine Microscopic WBC Ur Squamous Epith Cells Urine Bacteria Hyaline Casts 09/04/16 09/04/16 09/04/16 14:48 19:25 20:42 WBC RBC Hgb Hct MCV MCH MCHC RDW Plt Count MPV Immature Gran % Seg Neutrophils % Lymphocytes % Monocytes % Eosinophils % Basophils % Neutrophils # Lymphocytes # Monocytes # Eosinophils # Basophils # Immature Plt Fraction ABG pH 7.22 L ABG pCO2 14 L* ABG pO2 121 H ABG HCO3 5.7 L ABG Total CO2 6.1 L ABG O2 Saturation 98 ABG Base Excess -19.7 L VBG pH VBG pCO2 VBG pO2 VBG HCO3 Blood Gas Modality RA Inspired O2 21 Sodium Potassium Chloride Carbon Dioxide BUN Creatinine Est GFR ( Amer) Est GFR (Non-Af Amer) BUN/Creatinine Ratio Glucose POC Glucose 120 H Calculated Osmolality Lactic Acid Calcium Total Bilirubin AST ALT Alkaline Phosphatase Serum Total Protein Albumin Globulin Albumin/Globulin Ratio Beta-Hydroxybutyric Acd Urine Color Yellow Urine Clarity Clear Urine pH 5.5 Ur Specific [place] 1.015 Urine Protein 30 H Urine Glucose (UA) Normal Urine Ketones >=160 H Urine Blood Small H Urine Nitrite Negative Urine Bilirubin Negative Urine Urobilinogen Normal Ur Leukocyte Esterase Negative Urine Microscopic RBC 0-3 Urine Microscopic WBC 0-3 Ur Squamous Epith Cells Moderate H Urine Bacteria None Seen Hyaline Casts None Seen 09/04/16 09/04/16 09/04/16 21:40 21:40 21:40 WBC RBC Hgb Hct MCV MCH MCHC RDW Plt Count MPV Immature Gran % Seg Neutrophils % Lymphocytes % Monocytes % Eosinophils % Basophils % Neutrophils # Lymphocytes # Monocytes # Eosinophils # Basophils # Immature Plt Fraction ABG pH ABG pCO2 ABG pO2 ABG HCO3 ABG Total CO2 ABG O2 Saturation ABG Base Excess VBG pH VBG pCO2 VBG pO2 VBG HCO3 Blood Gas Modality Inspired O2 Sodium 135 L Potassium 4.0 D Chloride 111 H Carbon Dioxide 5 L* BUN 9 Creatinine 0.82 Est GFR ( Amer) > 60 Est GFR (Non-Af Amer) > 60 BUN/Creatinine Ratio 11 Glucose 160 H POC Glucose Calculated Osmolality 282 Lactic Acid 0.6 Calcium 8.9 Total Bilirubin 0.3 AST 17 ALT 14 Alkaline Phosphatase 111 Serum Total Protein 6.4 Albumin 2.2 L D Globulin 4.2 H Albumin/Globulin Ratio 0.5 L Beta-Hydroxybutyric Acd > 2.00 H Urine Color Urine Clarity Urine pH Ur Specific [place] Urine Protein Urine Glucose (UA) Urine Ketones Urine Blood Urine Nitrite Urine Bilirubin Urine Urobilinogen Ur Leukocyte Esterase Urine Microscopic RBC Urine Microscopic WBC Ur Squamous Epith Cells Urine Bacteria Hyaline Casts 09/05/16 09/05/16 09/05/16 00:51 01:11 01:11 WBC 11.4 H RBC 3.68 L Hgb 10.8 L D Hct 33.0 L MCV 89.7 MCH 29.3 MCHC 32.7 RDW 14.6 H Plt Count 266 MPV 11.1 Immature Gran % 1.3 Seg Neutrophils % 82.1 Lymphocytes % 7.9 Monocytes % 8.5 Eosinophils % 0.0 Basophils % 0.2 Neutrophils # 9.3 H Lymphocytes # 0.9 Monocytes # 1.0 Eosinophils # 0.0 Basophils # 0.0 Immature Plt Fraction ABG pH ABG pCO2 ABG pO2 ABG HCO3 ABG Total CO2 ABG O2 Saturation ABG Base Excess VBG pH VBG pCO2 VBG pO2 VBG HCO3 Blood Gas Modality Inspired O2 Sodium 133 L Potassium 4.0 Chloride 111 H Carbon Dioxide 9 L* BUN 9 Creatinine 0.84 Est GFR ( Amer) > 60 Est GFR (Non-Af Amer) > 60 BUN/Creatinine Ratio 11 Glucose 195 H POC Glucose 146 H Calculated Osmolality 280 Lactic Acid Calcium 8.9 Total Bilirubin AST ALT Alkaline Phosphatase Serum Total Protein Albumin Globulin Albumin/Globulin Ratio Beta-Hydroxybutyric Acd Urine Color Urine Clarity Urine pH Ur Specific [place] Urine Protein Urine Glucose (UA) Urine Ketones Urine Blood Urine Nitrite Urine Bilirubin Urine Urobilinogen Ur Leukocyte Esterase Urine Microscopic RBC Urine Microscopic WBC Ur Squamous Epith Cells Urine Bacteria Hyaline Casts 09/05/16 09/05/16 09/05/16 01:54 06:00 06:00 WBC RBC Hgb Hct MCV MCH MCHC RDW Plt Count MPV Immature Gran % Seg Neutrophils % Lymphocytes % Monocytes % Eosinophils % Basophils % Neutrophils # Lymphocytes # Monocytes # Eosinophils # Basophils # Immature Plt Fraction ABG pH ABG pCO2 ABG pO2 ABG HCO3 ABG Total CO2 ABG O2 Saturation ABG Base Excess VBG pH 7.26 L 7.29 L VBG pCO2 23 L 30 L VBG pO2 177 H 206 H VBG HCO3 10.3 L 14.4 L Blood Gas Modality Inspired O2 Sodium 131 L Potassium 3.6 Chloride 110 H Carbon Dioxide 15 L BUN 7 Creatinine 0.75 Est GFR ( Amer) > 60 Est GFR (Non-Af Amer) > 60 BUN/Creatinine Ratio 9 Glucose 200 H POC Glucose Calculated Osmolality 276 L Lactic Acid Calcium 8.5 L Total Bilirubin AST ALT Alkaline Phosphatase Serum Total Protein Albumin Globulin Albumin/Globulin Ratio Beta-Hydroxybutyric Acd Urine Color Urine Clarity Urine pH Ur Specific [place] Urine Protein Urine Glucose (UA) Urine Ketones Urine Blood Urine Nitrite Urine Bilirubin Urine Urobilinogen Ur Leukocyte Esterase Urine Microscopic RBC Urine Microscopic WBC Ur Squamous Epith Cells Urine Bacteria Hyaline Casts
[2016-09-05] MEDS: Prenatal Vit/FA 1 EACH TABLET PO SCH (08:50)
[2016-09-05] MEDS ORDERED: Prenatal Vit/FA 1 EACH TABLET PO SCH (09:00)
[2016-09-05 10:21] LABS: VBG HCO3 16.4 mEq/L (21-27); VBG PH 7.28 pH Units (7.32-7.42)
[2016-09-05] MEDS: Pantoprazole 40 MG VIAL IVP SCH (10:23)
[2016-09-05 10:31] LABS: BUN/Creatinine Ratio 10 (6-26); Blood Urea Nitrogen 7 mg/dL (7-20); Calcium 8.9 mg/dL (8.6-10.8); Carbon Dioxide 17 mEq/L (19-29); Chloride 111 mEq/L (98-109); Glucose 110 mg/dL (70-99); Osmolality,Calculated 275 (280-300); Potassium 3.7 mEq/L (3.5-4.5); Sodium 133 mEq/L (136-145); eGFR For African Americans > 60 (> 60); eGFR For Non-African Americans > 60 (> 60)
[2016-09-05] MEDS: 0.9 % Sodium Chloride 1,000 ML IVC SCH ×4 (12:26→19:18)
[2016-09-05 14:04] LABS: VBG HCO3 16.2 mEq/L (21-27); VBG PH 7.26 pH Units (7.32-7.42)
[2016-09-05 14:06] LABS: BUN/Creatinine Ratio 11 (6-26); Blood Urea Nitrogen 7 mg/dL (7-20); Calcium 9.3 mg/dL (8.6-10.8); Carbon Dioxide 17 mEq/L (19-29); Chloride 110 mEq/L (98-109); Glucose 114 mg/dL (70-99); Osmolality,Calculated 275 (280-300); Potassium 3.9 mEq/L (3.5-4.5); Sodium 133 mEq/L (136-145); eGFR For African Americans > 60 (> 60); eGFR For Non-African Americans > 60 (> 60)
[2016-09-05] MEDS ORDERED: Dextrose Gel 15 GM PO PRN ×2 (15:34)
[2016-09-05] MEDS ORDERED: D5% in Water 1,000 ML IVC PRN (15:34)
[2016-09-05] MEDS ORDERED: Insulin DETEMIR 100 UNIT/ML X5UNITS SQ SCH (15:45)
[2016-09-05] MEDS: Insulin LISPRO 300 UNITS/3 ML VIAL SQ SCH ×2 (16:57→21:53)
[2016-09-05] MEDS: Insulin DETEMIR 100 UNIT/ML X5UNITS SQ SCH (16:58)
[2016-09-05] MEDS: Ibuprofen 600 MG TABLET PO PRN ×2 (17:05→23:23)
--- NOTE | 2016-09-05 17:53 | Event Note ---
Date of Encounter: 09/05/16 Time of Encounter: 11:15 31-year-old female with past medical history of gestational diabetes who underwent yesterday evening. She was found to be in diabetic ketoacidosis and was started on DKA protocol. WBCs 11.4. Lactic acid 0.6. She denies any cough, urinary complaints, skin rash or diarrhea. Her only complain is heartburn. 1. DKA. Her anion gap is closed and bicarbonate is 17. Will stop insulin drip and start Levemir 20 units daily. 2. Dyspepsia. IV PPI. 3. . [place] when necessary.
[2016-09-05 18:31] LABS: VBG HCO3 15.6 mEq/L (21-27); VBG PH 7.27 pH Units (7.32-7.42)
[2016-09-05 18:45] LABS: BUN/Creatinine Ratio 10 (6-26); Blood Urea Nitrogen 7 mg/dL (7-20); Calcium 9.3 mg/dL (8.6-10.8); Carbon Dioxide 16 mEq/L (19-29); Chloride 112 mEq/L (98-109); Glucose 173 mg/dL (70-99); Osmolality,Calculated 278 (280-300); Potassium 3.8 mEq/L (3.5-4.5); Sodium 133 mEq/L (136-145); eGFR For African Americans > 60 (> 60); eGFR For Non-African Americans > 60 (> 60)
[2016-09-06] MEDS: Ibuprofen 600 MG TABLET PO PRN ×2 (06:17→18:28)
[2016-09-06 07:32] LABS: Basophils % 0.2 %; Eosinophils % 0.2 %; Hematocrit 31.9 % (35.3-44.9); Hemoglobin 10.6 g/dL (11.5-15.4); Immature Granulocytes % 1.8 % (0-4); Lymphocytes # 1.6 K/mcL (0.6-4.6); Lymphocytes % 16.4 %; Mean Corpuscular HGB Conc 33.2 g/dL (31.6-35.5); Mean Corpuscular Volume 87.4 fL (83.0-100.0); Mean Platelet Volume 11.2 fL (9.4-12.4); Monocytes % 9.7 %; Neutrophils # 7.2 K/mcL (1.6-8.9); Platelet Count 196 K/mcL (140-400); Red Blood Count 3.65 M/mcL (3.82-4.97); Red Cell Distribution Width 14.6 % (11.5-14.5); Segmented Neutrophils % 71.7 %
[2016-09-06] MEDS: Insulin LISPRO 300 UNITS/3 ML VIAL SQ SCH ×4 (08:28→20:59)
[2016-09-06 08:41] LABS: BUN/Creatinine Ratio 13 (6-26); Blood Urea Nitrogen 9 mg/dL (7-20); Calcium 9.3 mg/dL (8.6-10.8); Carbon Dioxide 17 mEq/L (19-29); Chloride 114 mEq/L (98-109); Glucose 61 mg/dL (70-99); Magnesium 1.5 mg/dL (1.6-2.6); Osmolality,Calculated 281 (280-300); Phosphorous 1.2 mg/dL (2.3-4.7); Potassium 3.6 mEq/L (3.5-4.5); Sodium 137 mEq/L (136-145); eGFR For African Americans > 60 (> 60); eGFR For Non-African Americans > 60 (> 60)
[2016-09-06] MEDS: Pantoprazole 40 MG VIAL IVP SCH (09:18)
[2016-09-06] MEDS: Prenatal Vit/FA 1 EACH TABLET PO SCH (09:19)
[2016-09-06] MEDS: Insulin DETEMIR 100 UNIT/ML X5UNITS SQ SCH (09:20)
--- NOTE | 2016-09-06 12:56 | Internal Med Progress Note ---
Date of Encounter: 09/06/16 Time of Encounter: 10:00 - Assessment and plan (1) GDM, class A2 Current Visit: Yes Status: Acute Assessment and plan: Glucose level is stable. Hold Levemir. Closely monitor patient. Continue coverage with sliding scale. (2) Status post section Current Visit: Yes Status: Acute Assessment and plan: Continue post surgery management and pain control (3) Diabetic ketoacidosis Current Visit: Yes Status: Acute Assessment and plan: Resolved. Patient is still showing mild dehydration. Will continue hydrate patient. - Most likely after delivery the glucose will get down, will hold the Levemir, continue cover patient with a sliding scale. Qualifiers: Diabetes mellitus type: type 2 Diabetes mellitus complication detail: without coma Qualified Code(s): E13.10 - Other specified diabetes mellitus with ketoacidosis without coma (4) DVT prophylaxis Current Visit: Yes Status: Acute Assessment and plan: Encourage patient is to ambulate. Add heparin subcutaneously. - Time Spent With Patient 25 - 35 minutes - Subjective Interval history: Patient is a 31-year-old female admitted for . Medical consult was called for DKA. Saw and examined the patient today. Feels fine, complaining of thirsty. Minimal pain from the incision. Vitals are stable except for mild tachycardia. Glucose level get down. - Constitutional Vitals: Temp Pulse Resp BP Pulse Ox 98.1 F 98 16 120/79 97 09/06/16 11:53 09/06/16 11:53 09/06/16 11:53 09/06/16 11:53 09/06/16 11:53 General appearance: Present: A&O X 3, no acute distress, answers questions appropriately - Head Head exam: Present: atraumatic, normocephalic - Eye Eye exam: Present: PERRL, conjuntiva pink, sclera anicteric Pupils: Present: PERRL - Neck Neck exam general surgery: Present: supple, trachea midline. Absent: lymphadenopathy - Respiratory Respiratory exam: Present: CTAB. Absent: accessory muscle use, rales, rhonchi, wheezes - Cardiovascular Cardiovascular exam: Present: RRR, +S1, +S2. Absent: diastolic murmur, gallop, rubs, systolic murmur - GI/Abdominal GI/Abdominal exam: Present: normal bowel sounds, soft, no peritoneal signs. Absent: distended, tenderness - Extremities Exam Extremities exam: Present: warm, radial pulses palpable and symetrical. Absent : calf tenderness, cyanotic, pedal edema - Neurological Exam Neurological exam: Present: CN II-XII intact, oriented X3, no focal deficits. Absent: pronater drift, facial droop, speech deficit - Skin Skin exam: Present: dry, intact Internal Medicine: Result - Labs CBC & Chem 7: 09/06/16 06:41 09/06/16 06:41 Labs: Short CBC 09/06/16 Range/Units 06:41 WBC 10.0 (4.3-11.1) K/mcL Hgb 10.6 L (11.5-15.4) g/dL Hct 31.9 L (35.3-44.9) % Plt Count 196 (140-400) K/mcL Neutrophils # 7.2 (1.6-8.9) K/mcL BMP 09/05/16 09/05/16 09/06/16 13:44 18:06 06:41 Sodium 133 L 133 L 137 Potassium 3.9 3.8 3.6 Chloride 110 H 112 H 114 H Carbon Dioxide 17 L 16 L 17 L BUN 7 7 9 Creatinine 0.65 0.72 0.71 Glucose 114 H 173 H 61 L Calcium 9.3 9.3 9.3 - ABG Interpretation ABG results: ABG ABG pH 7.22 pH Units (7.32-7.45) L 09/04/16 19:25 ABG pCO2 14 mmHg (35-45) L* 09/04/16 19:25 ABG pO2 121 mmHg (85-104) H 09/04/16 19:25 ABG O2 Saturation 98 % (95-98) 09/04/16 19:25 - VTE Reasons for not Prescribing Prophylaxis: Treatment not Indicated - Low risk for VTE Documentation of Mechanical Device: Intermittent pneumatic compression device Consult Discharge Plan - Plan Referrals: Nixon Bhatia MD [Partnered Physician] - 09/19/16 3:15 pm Cheryl Christensen CNP [Advanced Practice Nurse] - 09/12/16 2:30 pm ()
[2016-09-06] MEDS: *HR* OxyCODONE/APAP 5/325 TABLET PO PRN (13:12)
[2016-09-06] MEDS: Ringers Solution, Lactated 1,000 ML IVC SCH (13:28)
[2016-09-06] MEDS ORDERED: Magnesium Sulfate 2 GM in D5% in Water 100 ML IVPB ONE (15:30)
[2016-09-06] MEDS: *HR* Heparin 5,000 UNIT/ML VIAL SQ SCH (18:14)
--- NOTE | 2016-09-06 18:15 | OB/GYN Progress Note ---
Date of Encounter: 09/06/16 Time of Encounter: 18:12 - Assessment and Plan (1) Status post section Current Visit: Yes Status: Acute patient doing very well, spoke to Hospitalist and the plan is to transfer her to their service so that they can keep managing her DKA, from an OB standpoint, patient can be discharged, she will follow up to see me in 2 weeks outpt Subjective - Subjective Patient reports: appetite normal, voiding normally, pain well controlled, ambulating normally : transported Objective - Vital Signs Latest vital signs: Vital Signs Temp Pulse Resp BP Pulse Ox 09/06/16 15:18 97.7 F 110 18 119/86 99 09/06/16 11:59 90 09/06/16 11:53 98.1 F 98 16 120/79 97 09/06/16 10:40 106 09/06/16 08:12 97.7 F 99 18 108/73 98 09/06/16 05:18 88 19 96 09/06/16 03:22 97.5 F L 90 19 102/77 96 09/06/16 03:00 82 09/06/16 02:00 93 21 112/98 96 09/05/16 23:53 19 09/05/16 23:51 98.1 F 90 20 115/72 98 09/05/16 23:30 98.1 F 90 20 115/72 98 09/05/16 23:00 98.1 F 90 20 115/72 98 09/05/16 21:55 20 09/05/16 21:10 94 18 96 09/05/16 19:31 98.1 F 100 17 96/66 96 Intake and Output 09/06/16 09/06/16 09/06/16 07:59 15:59 23:59 Intake Total 100 / 100 680 / 680 Output Total 1100 / 1100 1100 / 1100 Balance -1000 / -1000 -420 / -420 Intake: Oral 100 / 100 680 / 680 Output: Urine 1100 / 1100 1100 / 1100 Other: Meal Lunch Percent of Meal Consumed 100% Weight 77.5 kg Blood Glucose* 122 Patient Weight 09/06/16 23:59 Weight 77.5 kg - Exam Lungs: bilateral: normal Chest: Normal S1, Normal S2 Extremities: Present: normal Abdomen: Present: soft Incision: Present: intact Uterus: Present: firm - Labs Labs: Laboratory Results - last 24 hr 09/05/16 09/05/16 09/05/16 17:15 17:59 18:06 WBC RBC Hgb Hct MCV MCH MCHC RDW Plt Count MPV Immature Gran % Seg Neutrophils % Lymphocytes % Monocytes % Eosinophils % Basophils % Neutrophils # Lymphocytes # Monocytes # Eosinophils # Basophils # VBG pH 7.27 L VBG pCO2 34 L VBG pO2 171 H VBG HCO3 15.6 L Sodium Potassium Chloride Carbon Dioxide BUN Creatinine Est GFR ( Amer) Est GFR (Non-Af Amer) BUN/Creatinine Ratio Glucose POC Glucose 184 H 187 H Calculated Osmolality Calcium Phosphorus Magnesium 09/05/16 09/05/16 09/06/16 18:06 19:19 06:41 WBC 10.0 RBC 3.65 L Hgb 10.6 L Hct 31.9 L MCV 87.4 MCH 29.0 MCHC 33.2 RDW 14.6 H Plt Count 196 MPV 11.2 Immature Gran % 1.8 Seg Neutrophils % 71.7 Lymphocytes % 16.4 Monocytes % 9.7 Eosinophils % 0.2 Basophils % 0.2 Neutrophils # 7.2 Lymphocytes # 1.6 Monocytes # 1.0 Eosinophils # 0.0 Basophils # 0.0 VBG pH VBG pCO2 VBG pO2 VBG HCO3 Sodium 133 L Potassium 3.8 Chloride 112 H Carbon Dioxide 16 L BUN 7 Creatinine 0.72 Est GFR ( Amer) > 60 Est GFR (Non-Af Amer) > 60 BUN/Creatinine Ratio 10 Glucose 173 H POC Glucose 176 H Calculated Osmolality 278 L Calcium 9.3 Phosphorus Magnesium 09/06/16 09/06/16 09/06/16 06:41 08:11 11:49 WBC RBC Hgb Hct MCV MCH MCHC RDW Plt Count MPV Immature Gran % Seg Neutrophils % Lymphocytes % Monocytes % Eosinophils % Basophils % Neutrophils # Lymphocytes # Monocytes # Eosinophils # Basophils # VBG pH VBG pCO2 VBG pO2 VBG HCO3 Sodium 137 Potassium 3.6 Chloride 114 H Carbon Dioxide 17 L BUN 9 Creatinine 0.71 Est GFR ( Amer) > 60 Est GFR (Non-Af Amer) > 60 BUN/Creatinine Ratio 13 Glucose 61 L POC Glucose 72 98 H Calculated Osmolality 281 Calcium 9.3 Phosphorus 1.2 L Magnesium 1.5 L 09/06/16 15:26 WBC RBC Hgb Hct MCV MCH MCHC RDW Plt Count MPV Immature Gran % Seg Neutrophils % Lymphocytes % Monocytes % Eosinophils % Basophils % Neutrophils # Lymphocytes # Monocytes # Eosinophils # Basophils # VBG pH VBG pCO2 VBG pO2 VBG HCO3 Sodium Potassium Chloride Carbon Dioxide BUN Creatinine Est GFR ( Amer) Est GFR (Non-Af Amer) BUN/Creatinine Ratio Glucose POC Glucose 122 H Calculated Osmolality Calcium Phosphorus Magnesium
[2016-09-07] MEDS: Ibuprofen 600 MG TABLET PO PRN ×2 (03:35→10:29)
[2016-09-07 06:14] LABS: Basophils % 0.3 %; Eosinophils % 0.6 %; Hematocrit 30.5 % (35.3-44.9); Hemoglobin 10.4 g/dL (11.5-15.4); Lymphocytes # 1.8 K/mcL (0.6-4.6); Lymphocytes % 27.5 %; Mean Corpuscular HGB Conc 34.1 g/dL (31.6-35.5); Mean Corpuscular Volume 87.9 fL (83.0-100.0); Mean Platelet Volume 11.6 fL (9.4-12.4); Monocytes # 0.6 K/mcL (0.0-1.3); Monocytes % 8.7 %; Neutrophils # 4.1 K/mcL (1.6-8.9); Platelet Count 196 K/mcL (140-400); Red Blood Count 3.47 M/mcL (3.82-4.97); Segmented Neutrophils % 61.9 %
[2016-09-07 06:27] LABS: BUN/Creatinine Ratio 19 (6-26); Blood Urea Nitrogen 12 mg/dL (7-20); Calcium 8.9 mg/dL (8.6-10.8); Carbon Dioxide 21 mEq/L (19-29); Chloride 110 mEq/L (98-109); Glucose 110 mg/dL (70-99); Osmolality,Calculated 286 (280-300); Potassium 3.2 mEq/L (3.5-4.5); Sodium 138 mEq/L (136-145); eGFR For African Americans > 60 (> 60); eGFR For Non-African Americans > 60 (> 60)
[2016-09-07] MEDS: *HR* Heparin 5,000 UNIT/ML VIAL SQ SCH (06:27)
[2016-09-07] MEDS: Insulin LISPRO 300 UNITS/3 ML VIAL SQ SCH ×2 (07:42→11:14)
[2016-09-07] MEDS: Prenatal Vit/FA 1 EACH TABLET PO SCH (07:52)
[2016-09-07] MEDS ORDERED: *HR* Metformin 500 MG TABLET PO SCH (08:00)
--- NOTE | 2016-09-07 11:11 | Discharge Summary ---
Date of Encounter: 09/07/16 Time of Encounter: 10:00 - Discharge Diagnosis (1) GDM, class A2 Priority: Primary Status: Acute (2) Status post section Priority: Primary Status: Acute (3) Diabetic ketoacidosis Priority: Primary Status: Acute Qualifiers: Diabetes mellitus type: type 2 Diabetes mellitus complication detail: without coma Qualified Code(s): E13.10 - Other specified diabetes mellitus with ketoacidosis without coma (4) DVT prophylaxis Priority: Secondary Status: Acute - Discharge Medications Prescriptions: Breast Pump [BREAST PUMP] 1 each .ROUTE AD #1 each metFORMIN [Glucophage] 500 mg PO BIDWM #60 tab Home Medications: Breast Pump [BREAST PUMP] 1 each .ROUTE AD #1 each 09/07/16 [Rx] Sertraline [Zoloft] 50 mg PO DAILY #30 tablet 09/07/16 [Rx] metFORMIN [Glucophage] 500 mg PO BIDWM #60 tab 09/07/16 [Rx] Allergies/Adverse Reactions: Allergies latex Adverse Reaction (Verified 09/01/16 10:04) Blister Procedures/tests Complete & Pending: Procedures Performed prior 72 hours Category Date Time Status EV echocardiogram Stat Y 09/04/16 14:17 Completed - Notes to Outpatient Provider Please follow up blood sugar level. Date of admission: 09/04/16 16:35 Primary care physician: PCP NO Consults: 09/04/16 20:04 Consult to Hospitalist [CONS] Stat Consulting Provider: Hospitalist [place] Reason for Consult: electrolyte abnormalities, ?DKA Call Completed: Yes 09/05/16 01:20 Consult for Pharmacy Education [CONS] Routine Reason for Consult: DKA Call Completed: No Consult to Endocrinology [CONS] Routine Consulting Provider: [facility] [place] Reason for Consult: DKA Call Completed: No Discharging clinician: Lele Phillips Anticipated date of discharge: 09/07/16 - Patient Status Disposition: Home, Self-Care Condition: Good Functional capacity at discharge: independent ambulation Overall status at discharge: patient is back to baseline - Discharge Instructions Follow Up With: Nixon Bhatia MD [Partnered Physician] - 09/19/16 3:15 pm Cheryl Christensen CNP [Advanced Practice Nurse] - 09/12/16 2:30 pm () - Diet and Activity Activity: increase activity as tolerated Diet: diabetic diet Interval History: Ms. Barch is a 31 year old female @ 33+1 weeks with GDMA 2 on Glyburide who presented to L and D for prolonged monitoring after a BPP of 6/8(2 for breathing). On L and D, fingersticks have been normal, no LOF, VB or ctxs. She reports some difficulty breathing when she lays down. She reports that she has been watching what she eats because she was afraid of her sugars and reports only eating a hard boiled egg for breakfast. On L and D, tracing was noted to be tachycardic with mod chase, occasional variable and occ late decels. She was given steroids for lung maturation. She was kept longer on the monitor and continued to complain of shortness of breath. She became tachycardic and tachypnic, BP normal, O2 sats 100%. She was sent for an ECHO which returned normal. Shortly after she returned, the tracing was found to have recurrent late decels. Labs were drawn before proceeding to C/Section. Hospital course: Ms. Patel is a 31 year old female with GDM on glyburide admitted for abnormal fetus monitoring. Patient was planned for , steroid was given to promote lung maturity. Patient to develop DKA right after . Medical consult was called. She was treated with insulin drip, IV fluid, potassium supplement, her DKA has resolved after treatment. Her sugar level is stable afterwards. [employer] doctor sign off already. Patient is ready to discharge home with by mouth metformin and follow up with PCP as outpatient. I saw and examined the patient today. She is awake alert, minimal incision pain well controlled with pain medication. Vitals are stable. Fasting sugar level 110. The patient was discharged home with metformin and follow-up as outpatient. Patient was educated to keep a diabetic diet and self monitoring of her blood sugar level. Mild hypo-kalemia, potassium supplement was given. 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 - Time Spent with Patient Total time spent providing and/or coordinating discharge services: 40 min Greater than 30 minutes - Constitutional Vitals: Temp Pulse Resp BP Pulse Ox 98 F 75 18 119/88 98 09/07/16 07:55 09/07/16 08:13 07/26/17 07:55 09/07/16 07:55 09/07/16 03:21 General appearance: Present: A&O X 3, no acute distress, answers questions appropriately - Head Head exam: Present: atraumatic, normocephalic - Eye Eye exam: Present: PERRL, conjuntiva pink, sclera anicteric Pupils: Present: PERRL - Neck Neck exam general surgery: Present: supple, trachea midline. Absent: lymphadenopathy - Respiratory Respiratory exam: Present: CTAB. Absent: accessory muscle use, rales, rhonchi, wheezes - Cardiovascular Cardiovascular exam: Present: RRR, +S1, +S2. Absent: diastolic murmur, gallop, rubs, systolic murmur - GI/Abdominal GI/Abdominal exam: Present: normal bowel sounds, soft, no peritoneal signs. Absent: distended, tenderness - Extremities Exam Extremities exam: Present: warm, radial pulses palpable and symetrical. Absent : calf tenderness, cyanotic, pedal edema - Neurological Exam Neurological exam: Present: CN II-XII intact, oriented X3, no focal deficits. Absent: pronater drift, facial droop, speech deficit - Skin Skin exam: Present: dry, intact - VTE Reasons for not Prescribing Prophylaxis: Treatment not Indicated - Low risk for VTE Documentation of Mechanical Device: Intermittent pneumatic compression device
[2016-09-07 11:48] VITALS: BP 122/90
== END 2016-09-07 15:58 | disposition home or self-care (01) | DRG 540 ==
LOC: 1NENULAB → 2NNU 09-05 00:58
PROVIDERS: ADMIT Student in an Organized Health Care Education/Training Program; ATTEND Student in an Organized Health Care Education/Training Program